=== PATIENT | male | born 1955 | race Asian ===

== ENCOUNTER 2025-01-18 21:11 | Inpatient (IN) | payer MEDICARE, OTHER ==
[~2025-01-18] VITALS: Ht 170.2 cm; Wt 50.9 kg
[2025-01-18] MEDS ORDERED: 0.9% SODIUM CHLORIDE 10 ML SYRINGE IVP PRN (23:15)
[2025-01-18] MEDS: CefTRIAXone 1 GM/DEXTROSE 50 ML IV ONE (23:36)
[2025-01-18] MEDS: LORazepam 2 MG/ML VIAL IVP ONE (23:37)
[2025-01-18 23:38] LABS: CALCIUM, TOTAL 9.0 mg/dL (8.8-10.5); CREATININE 1.19 mg/dL (0.60-1.30); GLOMERULAR FILTR. RATE CALC > 60 mL/min (>60); GLUCOSE,RANDOM 198 mg/dL (70-110); PLATELET COUNT (AUTO) 382 K/uL (150-450); RED BLOOD CELL COUNT(AUTO) 5.40 MIL/uL (4.50-5.90); RED CELL DISTRIBUTION WIDTH 15.0 % (11.5-14.5); SODIUM SERUM 131 mmol/L (136-145); UREA NITROGEN, BLOOD 15 mg/dL (7-18); WHITE BLOOD COUNT (AUTO) 12.7 K/uL (4.5-11.0)
[2025-01-18 23:54] LABS: RBC MORPHOLOGY COMMENT ABNORMAL RBC MORPH
[2025-01-19] MEDS ORDERED: 0.9% SODIUM CHLORIDE 10 ML SYRINGE IVP PRN (00:30)
[2025-01-19 00:55] LABS: LACTIC ACID 3.8 mmol/L (0.4-2.0)
[2025-01-19] MEDS: SODIUM CHLORIDE 0.9% 2,000 ML IV ONE (01:03)
[2025-01-19 01:16] LABS: ASPARTATE AMINOTRANSFERASE 64.0 U/L (15-37); LACTATE DEHYDROGENASE 302.0 U/L (85-227); TOTAL PROTEIN, SERUM 8.0 g/dL (6.4-8.2)
[2025-01-19 04:40] LABS: PLATELET COUNT (AUTO) 355 K/uL (150-450); RED BLOOD CELL COUNT(AUTO) 5.06 MIL/uL (4.50-5.90); RED CELL DISTRIBUTION WIDTH 14.6 % (11.5-14.5); WHITE BLOOD COUNT (AUTO) 13.6 K/uL (4.5-11.0)
[2025-01-19 04:45] LABS: CALCIUM, TOTAL 8.6 mg/dL (8.8-10.5); CREATININE 0.96 mg/dL (0.60-1.30); GLOMERULAR FILTR. RATE CALC > 60 mL/min (>60); GLUCOSE,RANDOM 52 mg/dL (70-110); SODIUM SERUM 135 mmol/L (136-145); UREA NITROGEN, BLOOD 12 mg/dL (7-18)
[2025-01-19 05:06] LABS: RBC MORPHOLOGY COMMENT ABNORMAL RBC MORPH
[2025-01-19] MEDS: DEXTROSE 50%-WATER 25 GM/50 ML SYRINGE IVP PRN (05:20)
[2025-01-19 05:25] VITALS: BP 158/69; PULSE 88; RESP 17; TEMP 98.2; O2SAT 95
[2025-01-19 06:21] LABS: GLUCOMETER DEV NAME(LOC) 5N.1D; GLUCOSE,POINT OF CARE 55 MG/DL (70-110)
[2025-01-19 06:21] LABS: GLUCOMETER DEV NAME(LOC) 5N.1D; GLUCOSE,POINT OF CARE 194 MG/DL (70-110)
[2025-01-19 07:52] VITALS: BP 157/84; PULSE 75; RESP 17; TEMP 99.5; O2SAT 99
[2025-01-19] MEDS: DEXTROSE 5%-LACTATED RINGERS 1,000 ML IV SCH (09:00)
[2025-01-19 11:41] LABS: GLUCOMETER DEV NAME(LOC) 5N.1D; GLUCOSE,POINT OF CARE 131 MG/DL (70-110)
[2025-01-19 11:41] LABS: GLUCOMETER DEV NAME(LOC) 5N.1D; GLUCOSE,POINT OF CARE 88 MG/DL (70-110)
[2025-01-19 12:05] VITALS: BP 155/63; PULSE 93; RESP 16; TEMP 99.1; O2SAT 96
[2025-01-19 13:26] LABS: APPEARANCE,URINE TURBID (CLEAR); GLUCOSE, URINE (UA) 150-200 mg/dL (NEGATIVE); LEUKOCYTE ESTERASE ,URINE LARGE (NEGATIVE); NITRATE,URINE NEGATIVE (NEGATIVE); OCCULT BLOOD,URINE LARGE (NEGATIVE); SPECIFIC GRAVITIY, URINE 1.012 (1.003-1.030)
[2025-01-19] MEDS ORDERED: IOHEXOL 350 MG/ML 100 ML VIAL ONE (13:26)
[2025-01-19 13:43] LABS: SULFOSALICYLIC ACID,URINE 4+ (Negative)
[2025-01-19 13:51] LABS: SQUAMOUS EPITHELIAL CELL,UR Moderate /LPF (None Seen)
[2025-01-19] MEDS: PIPERACILLIN/TAZO 3.375 GM/D5W 50 ML IV SCH (14:26)
[2025-01-19 15:49] VITALS: BP 143/79; PULSE 94; RESP 17; TEMP 99; O2SAT 96
[2025-01-19] MEDS: ACETAMINOPHEN 650 MG RECTAL SUPPOSITORY PR PRN (16:26)
[2025-01-19] MEDS: VANCOMYCIN 1.5 GM/WATER(PEG) 300 ML IV ONE (17:28)
[2025-01-19 17:56] LABS: GLUCOMETER DEV NAME(LOC) 5N.1D; GLUCOSE,POINT OF CARE 153 MG/DL (70-110)
[2025-01-19 19:48] VITALS: BP 141/74; PULSE 78; RESP 18; TEMP 98.8; O2SAT 98
[2025-01-19 23:28] VITALS: BP 163/81; PULSE 83; RESP 18; TEMP 97.7; O2SAT 98
[2025-01-20 06:31] LABS: PLATELET COUNT (AUTO) 390 K/uL (150-450); RED BLOOD CELL COUNT(AUTO) 5.28 MIL/uL (4.50-5.90); RED CELL DISTRIBUTION WIDTH 15.0 % (11.5-14.5); WHITE BLOOD COUNT (AUTO) 14.7 K/uL (4.5-11.0)
[2025-01-20 06:36] VITALS: BP 152/75; PULSE 86; RESP 20; TEMP 98.4; O2SAT 98
[2025-01-20 06:44] LABS: CALCIUM, TOTAL 8.9 mg/dL (8.8-10.5); CREATININE 0.96 mg/dL (0.60-1.30); GLOMERULAR FILTR. RATE CALC > 60 mL/min (>60); GLUCOSE,RANDOM 168 mg/dL (70-110); SODIUM SERUM 138 mmol/L (136-145); UREA NITROGEN, BLOOD 12 mg/dL (7-18)
[2025-01-20 08:31] LABS: RBC MORPHOLOGY COMMENT ABNORMAL RBC MORPH
[2025-01-20 08:33] VITALS: BP 191/84; PULSE 99; RESP 18; TEMP 100.3; O2SAT 96
[2025-01-20] MEDS: VANCOMYCIN 1GM/WATER(PEG/NADA) 200 ML IV SCH (09:02)
[2025-01-20 10:50] VITALS: BP 145/78; PULSE 75; RESP 12; TEMP 98.8; O2SAT 98
[2025-01-20 11:30] LABS: GLUCOMETER DEV NAME(LOC) 5S.1D; GLUCOSE,POINT OF CARE 146 MG/DL (70-110)
[2025-01-20 11:30] LABS: GLUCOMETER DEV NAME(LOC) 5S.1D; GLUCOSE,POINT OF CARE 181 MG/DL (70-110)
[2025-01-20] MEDS: *CLINICAL-MEROPENEM DOSING CLINICAL ONE (11:43)
[2025-01-20] MEDS: INSULIN LISPRO 100 UNITS/ML SQ PRN (11:58)
[2025-01-20] MEDS: MEROPENEM 1 GM in SODIUM CHLORIDE 0.9% 50 ML IV SCH (14:29)
[2025-01-20 15:24] VITALS: BP 185/83; PULSE 89; RESP 17; TEMP 97.7; O2SAT 98
[2025-01-20] MEDS: HEPARIN SODIUM,PORCINE 5,000 UNITS/ML VIAL SQ SCH (17:01)
[2025-01-20 20:00] VITALS: BP 181/73; PULSE 90; RESP 18; TEMP 98.2; O2SAT 98
[2025-01-21] VITALS: BP 174/80; PULSE 97; RESP 18; TEMP 99.1; O2SAT 97
[2025-01-21 03:26] LABS: GLUCOMETER DEV NAME(LOC) 5N.1D; GLUCOSE,POINT OF CARE 114 MG/DL (70-110)
[2025-01-21 04:00] VITALS: BP 175/78; PULSE 89; RESP 18; TEMP 98.6; O2SAT 97
[2025-01-21 06:51] LABS: CALCIUM, TOTAL 8.6 mg/dL (8.8-10.5); CREATININE 1.03 mg/dL (0.60-1.30); GLOMERULAR FILTR. RATE CALC > 60 mL/min (>60); GLUCOSE,RANDOM 183 mg/dL (70-110); SODIUM SERUM 140 mmol/L (136-145); UREA NITROGEN, BLOOD 14 mg/dL (7-18)
[2025-01-21 08:10] LABS: GLUCOMETER DEV NAME(LOC) 5S.2D; GLUCOSE,POINT OF CARE 177 MG/DL (70-110)
[2025-01-21] MEDS: VANCOMYCIN 750 MG/WATER(PEG) 150 ML IV SCH (08:23)
[2025-01-21 08:36] VITALS: BP 173/73; PULSE 87; RESP 17; TEMP 97.9; O2SAT 98
[2025-01-21] MEDS: NITROGLYCERIN 2% (1 GM=INCH) OINTMENT PACKET TP SCH (09:15)
[2025-01-21] MEDS: POTASSIUM CHL 10 MEQ/WATER 50 ML IV PRN (10:22)
[2025-01-21] MEDS: RINGERS SOLUTION,LACTATED 1,000 ML IV SCH (10:23)
[2025-01-21 10:51] VITALS: BP 161/84; PULSE 93; RESP 18; TEMP 97.3; O2SAT 97
[2025-01-21 15:09] VITALS: BP 152/72; PULSE 76; RESP 16; TEMP 98.4; O2SAT 99
[2025-01-21 15:26] LABS: GLUCOMETER DEV NAME(LOC) 5S.2D; GLUCOSE,POINT OF CARE 152 MG/DL (70-110)
[2025-01-21] MEDS: FLUCONAZOLE IV ONE (17:32)
[2025-01-21] MEDS: SODIUM CHLORIDE IV ONE (17:32)
[2025-01-21 18:40] LABS: GLUCOMETER DEV NAME(LOC) 5S.1D; GLUCOSE,POINT OF CARE 190 MG/DL (70-110)
[2025-01-21 20:00] VITALS: BP 193/84; PULSE 81; RESP 18; TEMP 98.6; O2SAT 98
[2025-01-22] VITALS (7 sets, daily range): BP systolic 138–212; BP diastolic 72–103; PULSE 80–93; RESP 16–18; TEMP 97.3–98.2; O2SAT 95–99
[2025-01-22 05:26] LABS: GLUCOMETER DEV NAME(LOC) 5S.1D; GLUCOSE,POINT OF CARE 146 MG/DL (70-110)
[2025-01-22 06:04] LABS: PLATELET COUNT (AUTO) 471 K/uL (150-450); RED BLOOD CELL COUNT(AUTO) 5.32 MIL/uL (4.50-5.90); RED CELL DISTRIBUTION WIDTH 15.1 % (11.5-14.5); WHITE BLOOD COUNT (AUTO) 13.4 K/uL (4.5-11.0)
[2025-01-22 06:13] LABS: ASPARTATE AMINOTRANSFERASE 38 U/L (15-37); CALCIUM, TOTAL 9.1 mg/dL (8.8-10.5); CREATININE 1.02 mg/dL (0.60-1.30); GLOMERULAR FILTR. RATE CALC > 60 mL/min (>60); GLUCOSE,RANDOM 184 mg/dL (70-110); SODIUM SERUM 150 mmol/L (136-145); TOTAL PROTEIN, SERUM 7.7 g/dL (6.4-8.2); UREA NITROGEN, BLOOD 17 mg/dL (7-18)
[2025-01-22 06:37] LABS: RBC MORPHOLOGY COMMENT ABNORMAL RBC MORPH
[2025-01-22 10:00] LABS: GLUCOMETER DEV NAME(LOC) 5S.1D; GLUCOSE,POINT OF CARE 178 MG/DL (70-110)
[2025-01-22 11:55] LABS: GLUCOMETER DEV NAME(LOC) 5S.1D; GLUCOSE,POINT OF CARE 215 MG/DL (70-110)
[2025-01-22] MEDS: DEXTROSE 5%-WATER 1,000 ML IV ONE (13:06)
[2025-01-22 14:41] LABS: GLUCOMETER DEV NAME(LOC) 5S.1D; GLUCOSE,POINT OF CARE 175 MG/DL (70-110)
[2025-01-22 14:41] LABS: GLUCOMETER DEV NAME(LOC) 5S.1D; GLUCOSE,POINT OF CARE 148 MG/DL (70-110)
[2025-01-22] MEDS: POTASSIUM CHL 10 MEQ/WATER 50 ML IV SCH (15:15)
[2025-01-22] MEDS: SODIUM CHLORIDE IV SCH (17:08)
[2025-01-22] MEDS: FLUCONAZOLE IV SCH (17:08)
[2025-01-22 17:35] LABS: GLUCOMETER DEV NAME(LOC) 5S.2D; GLUCOSE,POINT OF CARE 378 MG/DL (70-110)
[2025-01-22] MEDS ORDERED: SODIUM CHLORIDE 0.9% 500 ML IV ONE (18:42)
[2025-01-22] MEDS: LABETALOL HCL 100 MG TABLET PO SCH (20:47)
[2025-01-23 04:40] VITALS: BP 183/79; PULSE 80; RESP 18; TEMP 98.2; O2SAT 97
[2025-01-23 05:59] LABS: PLATELET COUNT (AUTO) 487 K/uL (150-450); RED BLOOD CELL COUNT(AUTO) 5.05 MIL/uL (4.50-5.90); RED CELL DISTRIBUTION WIDTH 14.9 % (11.5-14.5); WHITE BLOOD COUNT (AUTO) 12.5 K/uL (4.5-11.0)
[2025-01-23 06:00] LABS: GLUCOMETER DEV NAME(LOC) 6S.1D; GLUCOSE,POINT OF CARE 296 MG/DL (70-110)
[2025-01-23 06:05] VITALS: BP 169/115; PULSE 81; RESP 16
[2025-01-23 06:10] LABS: CALCIUM, TOTAL 9.3 mg/dL (8.8-10.5); CREATININE 1.19 mg/dL (0.60-1.30); GLOMERULAR FILTR. RATE CALC > 60 mL/min (>60); GLUCOSE,RANDOM 299 mg/dL (70-110); SODIUM SERUM 154 mmol/L (136-145); UREA NITROGEN, BLOOD 20 mg/dL (7-18)
[2025-01-23 09:15] VITALS: BP 172/71; PULSE 72; RESP 20; TEMP 98.4; O2SAT 99
[2025-01-23] MEDS: DEXTROSE 5%-WATER 1,000 ML IV ONE (09:42)
[2025-01-23] MEDS: LABETALOL HCL 100 MG TABLET PO ONE (16:56)
[2025-01-23 17:04] VITALS: BP 140/89; PULSE 79; RESP 20; TEMP 97.9; O2SAT 99
[2025-01-23 18:31] LABS: GLUCOMETER DEV NAME(LOC) 6S.2; GLUCOSE,POINT OF CARE 240 MG/DL (70-110)
[2025-01-23 18:31] LABS: GLUCOMETER DEV NAME(LOC) 6S.2; GLUCOSE,POINT OF CARE 249 MG/DL (70-110)
[2025-01-23] MEDS: LABETALOL HCL 200 MG TABLET PO SCH (20:30)
[2025-01-23 20:45] VITALS: BP 136/73; PULSE 70; RESP 18; TEMP 97.9; O2SAT 97
[2025-01-24 05:00] VITALS: BP 170/77; PULSE 70; RESP 19; TEMP 98.1; O2SAT 97
[2025-01-24 05:50] VITALS: BP 170/87; PULSE 78
[2025-01-24 06:36] LABS: GLUCOMETER DEV NAME(LOC) 6S.1D; GLUCOSE,POINT OF CARE 296 MG/DL (70-110)
[2025-01-24 06:36] LABS: GLUCOMETER DEV NAME(LOC) 6S.1D; GLUCOSE,POINT OF CARE 350 MG/DL (70-110)
[2025-01-24 06:36] LABS: GLUCOMETER DEV NAME(LOC) 6N.2C; GLUCOSE,POINT OF CARE 313 MG/DL (70-110)
[2025-01-24 07:01] VITALS: BP 148/71; PULSE 70
[2025-01-24 07:22] LABS: PLATELET COUNT (AUTO) 483 K/uL (150-450); RED BLOOD CELL COUNT(AUTO) 5.34 MIL/uL (4.50-5.90); RED CELL DISTRIBUTION WIDTH 15.1 % (11.5-14.5); WHITE BLOOD COUNT (AUTO) 11.8 K/uL (4.5-11.0)
[2025-01-24 07:38] LABS: ASPARTATE AMINOTRANSFERASE 42.0 U/L (15-37); CALCIUM, TOTAL 9.9 mg/dL (8.8-10.5); CREATININE 1.46 mg/dL (0.60-1.30); GLOMERULAR FILTR. RATE CALC 48.0 mL/min (>60); GLUCOSE,RANDOM 317.0 mg/dL (70-110); SODIUM SERUM 154.0 mmol/L (136-145); TOTAL PROTEIN, SERUM 7.9 g/dL (6.4-8.2); UREA NITROGEN, BLOOD 21.0 mg/dL (7-18)
[2025-01-24 08:13] LABS: RBC MORPHOLOGY COMMENT ABNORMAL RBC MORPH
[2025-01-24 09:33] VITALS: BP 144/77; PULSE 69; RESP 18; TEMP 98; O2SAT 97
[2025-01-24] MEDS: DEXTROSE 5%-WATER 1,000 ML IV SCH (15:44)
[2025-01-24 16:12] LABS: CANDIDA AURIS PCR,SURVEILLANCE Not Detected C(t) (Not Detectd)
[2025-01-24 16:20] VITALS: BP 158/76; PULSE 71; RESP 18; TEMP 97.6; O2SAT 96
[2025-01-24 20:01] VITALS: BP 146/74; PULSE 75; RESP 18; TEMP 98.8; O2SAT 96
[2025-01-24 20:16] LABS: GLUCOMETER DEV NAME(LOC) 6N.2C; GLUCOSE,POINT OF CARE 235 MG/DL (70-110)
[2025-01-24] MEDS: POTASSIUM CHLORIDE 20 MEQ ER TABLET PO PRN (22:57)
[2025-01-25 04:00] VITALS: BP 147/73; PULSE 74; RESP 18; TEMP 98.4; O2SAT 96
[2025-01-25 06:10] LABS: GLUCOMETER DEV NAME(LOC) 6S.2; GLUCOSE,POINT OF CARE 245 MG/DL (70-110)
[2025-01-25 06:11] LABS: GLUCOMETER DEV NAME(LOC) 6N.2C; GLUCOSE,POINT OF CARE 294 MG/DL (70-110)
[2025-01-25 07:22] LABS: PLATELET COUNT (AUTO) 490 K/uL (150-450); RED BLOOD CELL COUNT(AUTO) 5.24 MIL/uL (4.50-5.90); RED CELL DISTRIBUTION WIDTH 15.1 % (11.5-14.5); WHITE BLOOD COUNT (AUTO) 11.9 K/uL (4.5-11.0)
[2025-01-25 07:32] LABS: CALCIUM, TOTAL 9.1 mg/dL (8.8-10.5); CREATININE 1.44 mg/dL (0.60-1.30); GLOMERULAR FILTR. RATE CALC 49.0 mL/min (>60); GLUCOSE,RANDOM 350.0 mg/dL (70-110); SODIUM SERUM 153.0 mmol/L (136-145); UREA NITROGEN, BLOOD 21.0 mg/dL (7-18)
[2025-01-25 08:03] LABS: RBC MORPHOLOGY COMMENT ABNORMAL RBC MORPH
[2025-01-25 08:05] VITALS: BP 154/90; PULSE 72; RESP 18; TEMP 98.1; O2SAT 98
[2025-01-25 17:15] LABS: GLUCOMETER DEV NAME(LOC) 6S.1D; GLUCOSE,POINT OF CARE 234 MG/DL (70-110)
[2025-01-25 17:15] LABS: GLUCOMETER DEV NAME(LOC) 6S.1D; GLUCOSE,POINT OF CARE 329 MG/DL (70-110)
[2025-01-25 17:37] VITALS: BP 140/67; PULSE 70; RESP 18; TEMP 97.7; O2SAT 98
[2025-01-25 20:29] VITALS: BP 140/66; PULSE 72; RESP 19; TEMP 98.1; O2SAT 98
[2025-01-26 05:23] VITALS: BP 156/79; PULSE 75; RESP 19; TEMP 98.1; O2SAT 99
[2025-01-26 06:28] LABS: RED BLOOD CELL COUNT(AUTO) 5.83 MIL/uL (4.50-5.90); RED CELL DISTRIBUTION WIDTH 15.3 % (11.5-14.5); WHITE BLOOD COUNT (AUTO) 14.0 K/uL (4.5-11.0)
[2025-01-26 06:40] LABS: PLATELET COUNT (AUTO) 449 K/uL (150-450)
[2025-01-26 06:41] LABS: RBC MORPHOLOGY COMMENT ABNORMAL RBC MORPH
[2025-01-26 08:26] LABS: ASPARTATE AMINOTRANSFERASE 32.0 U/L (15-37); CALCIUM, TOTAL 10.2 mg/dL (8.8-10.5); CREATININE 1.67 mg/dL (0.60-1.30); GLOMERULAR FILTR. RATE CALC 41.0 mL/min (>60); GLUCOSE,RANDOM 315.0 mg/dL (70-110); SODIUM SERUM 156.0 mmol/L (136-145); TOTAL PROTEIN, SERUM 8.1 g/dL (6.4-8.2); UREA NITROGEN, BLOOD 28.0 mg/dL (7-18)
[2025-01-26 08:36] VITALS: BP 150/75; PULSE 72; RESP 18; TEMP 98.6; O2SAT 97
[2025-01-26 08:46] LABS: GLUCOMETER DEV NAME(LOC) 6S.1D; GLUCOSE,POINT OF CARE 392 MG/DL (70-110)
[2025-01-26 08:51] LABS: GLUCOMETER DEV NAME(LOC) 6S.2; GLUCOSE,POINT OF CARE 337 MG/DL (70-110)
[2025-01-26 08:51] LABS: GLUCOMETER DEV NAME(LOC) 6S.2; GLUCOSE,POINT OF CARE 299 MG/DL (70-110)
[2025-01-26 12:00] VITALS: BP 120/54; PULSE 75; RESP 18; TEMP 98; O2SAT 97
[2025-01-26 12:51] LABS: GLUCOMETER DEV NAME(LOC) 6N.2C; GLUCOSE,POINT OF CARE 395 MG/DL (70-110)
[2025-01-26 16:51] VITALS: BP 139/69; PULSE 73; RESP 18; TEMP 98.4; O2SAT 95
[2025-01-26 20:40] VITALS: BP 135/67; PULSE 78; RESP 18; TEMP 98.4; O2SAT 97
[2025-01-26] MEDS: INSULIN GLARGINE,HUM.REC.ANLOG 100 UNITS/ML SQ SCH (21:43)
[2025-01-26] MEDS: INSULIN LISPRO 100 UNITS/ML SQ ONE (21:46)
[2025-01-27 05:30] VITALS: BP 135/69; PULSE 74; RESP 18; TEMP 97.3; O2SAT 97
[2025-01-27 07:01] LABS: PLATELET COUNT (AUTO) 403 K/uL (150-450); RED BLOOD CELL COUNT(AUTO) 5.04 MIL/uL (4.50-5.90); RED CELL DISTRIBUTION WIDTH 15.2 % (11.5-14.5); WHITE BLOOD COUNT (AUTO) 10.5 K/uL (4.5-11.0)
[2025-01-27 07:19] LABS: CALCIUM, TOTAL 10.0 mg/dL (8.8-10.5); CREATININE 1.83 mg/dL (0.60-1.30); GLOMERULAR FILTR. RATE CALC 37.0 mL/min (>60); GLUCOSE,RANDOM 367.0 mg/dL (70-110); SODIUM SERUM 156.0 mmol/L (136-145); UREA NITROGEN, BLOOD 34.0 mg/dL (7-18)
[2025-01-27 07:45] LABS: GLUCOMETER DEV NAME(LOC) 6S.2; GLUCOSE,POINT OF CARE 349 MG/DL (70-110)
[2025-01-27 07:46] LABS: GLUCOMETER DEV NAME(LOC) 6S.2; GLUCOSE,POINT OF CARE 348 MG/DL (70-110)
[2025-01-27 07:46] LABS: GLUCOMETER DEV NAME(LOC) 6S.2; GLUCOSE,POINT OF CARE 451 MG/DL (70-110)
[2025-01-27 09:09] VITALS: BP 132/58; PULSE 71; RESP 18; TEMP 99.7; O2SAT 100
[2025-01-27 11:00] VITALS: TEMP 98.2
[2025-01-27 12:55] LABS: GLUCOMETER DEV NAME(LOC) 6N.2C; GLUCOSE,POINT OF CARE 354 MG/DL (70-110)
[2025-01-27] MEDS: SODIUM CHLORIDE 0.45% 1,000 ML IV SCH (14:51)
[2025-01-27 15:47] VITALS: BP 118/59; PULSE 74; RESP 18; TEMP 99.3; O2SAT 100
[2025-01-27 20:14] VITALS: BP 137/56; PULSE 80; RESP 18; TEMP 98.8; O2SAT 98
[2025-01-27 20:26] LABS: GLUCOMETER DEV NAME(LOC) 6N.2C; GLUCOSE,POINT OF CARE 356 MG/DL (70-110)
[2025-01-27] MEDS: TAMSULOSIN HCL 0.4 MG CAPSULE PO SCH (20:30)
[2025-01-27] MEDS: INSULIN GLARGINE,HUM.REC.ANLOG 100 UNITS/ML SQ SCH (20:35)
[2025-01-27 21:26] LABS: GLUCOMETER DEV NAME(LOC) 6N.2C; GLUCOSE,POINT OF CARE 294 MG/DL (70-110)
[2025-01-28 04:11] VITALS: BP 157/74; PULSE 74; RESP 18; TEMP 97.7; O2SAT 97
[2025-01-28 06:25] LABS: GLUCOMETER DEV NAME(LOC) 6S.1D; GLUCOSE,POINT OF CARE 363 MG/DL (70-110)
[2025-01-28 06:48] LABS: CALCIUM, TOTAL 9.5 mg/dL (8.8-10.5); CREATININE 1.67 mg/dL (0.60-1.30); GLOMERULAR FILTR. RATE CALC 41.0 mL/min (>60); GLUCOSE,RANDOM 357.0 mg/dL (70-110); SODIUM SERUM 156.0 mmol/L (136-145); UREA NITROGEN, BLOOD 42.0 mg/dL (7-18)
[2025-01-28 07:13] LABS: PHOSPHORUS 4.1 mg/dL (2.5-4.9)
[2025-01-28 07:52] VITALS: BP 128/70; PULSE 69; RESP 18; TEMP 98.2; O2SAT 99
[2025-01-28 13:31] LABS: GLUCOMETER DEV NAME(LOC) 6S.1D; GLUCOSE,POINT OF CARE 466 MG/DL (70-110)
[2025-01-28 17:40] LABS: GLUCOMETER DEV NAME(LOC) 6N.2C; GLUCOSE,POINT OF CARE 345 MG/DL (70-110)
[2025-01-28 20:11] VITALS: BP 113/60; PULSE 77; RESP 18; O2SAT 97
[2025-01-28] MEDS: INSULIN GLARGINE,HUM.REC.ANLOG 100 UNITS/ML SQ SCH (21:19)
[2025-01-28 21:46] LABS: GLUCOMETER DEV NAME(LOC) 6N.2C; GLUCOSE,POINT OF CARE 179 MG/DL (70-110)
[2025-01-28 23:11] VITALS: BP 126/62; RESP 18; O2SAT 95
[2025-01-29 04:13] VITALS: BP 126/65; PULSE 72; RESP 18; TEMP 98.3; O2SAT 97
[2025-01-29 06:25] LABS: GLUCOMETER DEV NAME(LOC) 6N.2C; GLUCOSE,POINT OF CARE 293 MG/DL (70-110)
[2025-01-29 07:29] LABS: PLATELET COUNT (AUTO) 291 K/uL (150-450); RED BLOOD CELL COUNT(AUTO) 4.63 MIL/uL (4.50-5.90); RED CELL DISTRIBUTION WIDTH 14.8 % (11.5-14.5); WHITE BLOOD COUNT (AUTO) 11.5 K/uL (4.5-11.0)
[2025-01-29 07:32] LABS: PHOSPHORUS 3.7 mg/dL (2.5-4.9)
[2025-01-29 07:33] LABS: RBC MORPHOLOGY COMMENT ABNORMAL RBC MORPH
[2025-01-29 07:34] LABS: ASPARTATE AMINOTRANSFERASE 32.0 U/L (15-37); CALCIUM, TOTAL 8.5 mg/dL (8.8-10.5); CREATININE 1.93 mg/dL (0.60-1.30); GLOMERULAR FILTR. RATE CALC 35.0 mL/min (>60); GLUCOSE,RANDOM 289.0 mg/dL (70-110); SODIUM SERUM 156.0 mmol/L (136-145); TOTAL PROTEIN, SERUM 7.2 g/dL (6.4-8.2); UREA NITROGEN, BLOOD 42.0 mg/dL (7-18)
[2025-01-29 08:00] VITALS: BP 119/73; PULSE 69; RESP 18; TEMP 97.9; O2SAT 98
[2025-01-29] MEDS: TAMSULOSIN HCL 0.4 MG CAPSULE PO SCH (09:07)
[2025-01-29] MEDS: DEXTROSE 5%-WATER 1,000 ML IV SCH (09:13)
[2025-01-29 15:00] VITALS: BP 118/73; PULSE 66; RESP 19; TEMP 97.7; O2SAT 99
[2025-01-29 20:06] VITALS: BP 139/65; PULSE 75; RESP 19; TEMP 98.4; O2SAT 96
[2025-01-29 21:16] LABS: GLUCOMETER DEV NAME(LOC) 6S.1D; GLUCOSE,POINT OF CARE 348 MG/DL (70-110)
[2025-01-29] MEDS: INSULIN GLARGINE,HUM.REC.ANLOG 100 UNITS/ML SQ SCH (21:47)
[2025-01-29 23:34] VITALS: BP 121/58; PULSE 72
[2025-01-30 00:51] LABS: GLUCOMETER DEV NAME(LOC) 6S.2; GLUCOSE,POINT OF CARE 329 MG/DL (70-110)
[2025-01-30 04:25] VITALS: BP 117/66; PULSE 78; RESP 18; TEMP 97.7; O2SAT 97
[2025-01-30 05:30] LABS: GLUCOMETER DEV NAME(LOC) 6N.2C; GLUCOSE,POINT OF CARE 294 MG/DL (70-110)
[2025-01-30 05:35] LABS: GLUCOMETER DEV NAME(LOC) 6N.2C; GLUCOSE,POINT OF CARE 379 MG/DL (70-110)
[2025-01-30 07:50] LABS: PHOSPHORUS 3.4 mg/dL (2.5-4.9)
[2025-01-30 07:59] LABS: CALCIUM, TOTAL 9.1 mg/dL (8.8-10.5); CREATININE 1.71 mg/dL (0.60-1.30); GLOMERULAR FILTR. RATE CALC 40.0 mL/min (>60); GLUCOSE,RANDOM 346.0 mg/dL (70-110); UREA NITROGEN, BLOOD 35.0 mg/dL (7-18)
[2025-01-30 08:05] VITALS: BP 124/59; PULSE 69; RESP 20; TEMP 99; O2SAT 99
[2025-01-30 08:05] LABS: SODIUM SERUM 152.0 mmol/L (136-145)
[2025-01-30] MEDS: POTASSIUM CHLORIDE 10 MEQ ER TABLET PO ONE (08:15)
[2025-01-30] MEDS ORDERED: SODIUM CHLORIDE 0.9% 1,000 ML ONE (08:58)
[2025-01-30] MEDS: SODIUM CHLORIDE 0.9% 1,000 ML IV ONE (10:33)
[2025-01-30 11:01] LABS: GLUCOMETER DEV NAME(LOC) 6S.2; GLUCOSE,POINT OF CARE 317 MG/DL (70-110)
[2025-01-30] MEDS ORDERED: PROPOFOL 1% 20 ML VIAL IVP ONE (12:00)
[2025-01-30 15:20] VITALS: BP 154/77; PULSE 78; RESP 20; TEMP 99.5; O2SAT 98
[2025-01-30 19:42] VITALS: BP 124/81; PULSE 88; RESP 18; TEMP 99.1; O2SAT 96
[2025-01-30] MEDS: INSULIN GLARGINE,HUM.REC.ANLOG 100 UNITS/ML SQ SCH (20:42)
[2025-01-31 05:46] LABS: GLUCOMETER DEV NAME(LOC) 6S.1D; GLUCOSE,POINT OF CARE 245 MG/DL (70-110)
[2025-01-31 05:50] LABS: GLUCOMETER DEV NAME(LOC) 6S.2; GLUCOSE,POINT OF CARE 321 MG/DL (70-110)
[2025-01-31 05:51] VITALS: BP 121/57; PULSE 80; RESP 19; TEMP 99.7; O2SAT 95
[2025-01-31 07:26] LABS: PHOSPHORUS 2.5 mg/dL (2.5-4.9)
[2025-01-31 07:36] LABS: CALCIUM, TOTAL 8.0 mg/dL (8.8-10.5); CREATININE 1.77 mg/dL (0.60-1.30); GLOMERULAR FILTR. RATE CALC 38.0 mL/min (>60); GLUCOSE,RANDOM 274.0 mg/dL (70-110); SODIUM SERUM 148.0 mmol/L (136-145); UREA NITROGEN, BLOOD 32.0 mg/dL (7-18)
[2025-01-31 08:38] VITALS: BP 109/65; PULSE 75; RESP 18; TEMP 98.2; O2SAT 97
[2025-01-31] MEDS: POTASSIUM CHLORIDE 20 MEQ ER TABLET PO ONE (10:36)
[2025-01-31 11:35] LABS: GLUCOMETER DEV NAME(LOC) 6N.2C; GLUCOSE,POINT OF CARE 303 MG/DL (70-110)
[2025-01-31 11:40] LABS: GLUCOMETER DEV NAME(LOC) 6S.1D; GLUCOSE,POINT OF CARE 210 MG/DL (70-110)
[2025-01-31 16:16] VITALS: BP 120/63; PULSE 78; RESP 18; TEMP 98; O2SAT 96
[2025-01-31] MEDS: DEXTROSE 5%-WATER 1,000 ML IV ONE (17:12)
[2025-01-31] MEDS: POTASSIUM CHLORIDE 10% 40 MEQ/30 ML LIQUID UDCUP GT ONE (17:12)
[2025-01-31 20:44] VITALS: BP 126/64; PULSE 89; RESP 19; TEMP 98.1; O2SAT 97
[2025-01-31 21:16] LABS: GLUCOMETER DEV NAME(LOC) 6S.2; GLUCOSE,POINT OF CARE 233 MG/DL (70-110)
[2025-01-31] MEDS ORDERED: INSULIN LISPRO 100 UNITS/ML SQ ONE (22:30)
[2025-02-01 04:29] VITALS: BP 110/60; PULSE 84; RESP 19; TEMP 97.9; O2SAT 94
[2025-02-01 05:46] LABS: GLUCOMETER DEV NAME(LOC) 6S.1D; GLUCOSE,POINT OF CARE 266 MG/DL (70-110)
[2025-02-01 05:46] LABS: GLUCOMETER DEV NAME(LOC) 6S.1D; GLUCOSE,POINT OF CARE 450 MG/DL (70-110)
[2025-02-01] MEDS: INSULIN LISPRO 100 UNITS/ML SQ PRN (05:55)
[2025-02-01 06:52] LABS: PHOSPHORUS 2.9 mg/dL (2.5-4.9)
[2025-02-01 07:00] LABS: CALCIUM, TOTAL 8.3 mg/dL (8.8-10.5); CREATININE 1.6 mg/dL (0.60-1.30); GLOMERULAR FILTR. RATE CALC 43.0 mL/min (>60); GLUCOSE,RANDOM 152.0 mg/dL (70-110); SODIUM SERUM 145.0 mmol/L (136-145); UREA NITROGEN, BLOOD 38.0 mg/dL (7-18)
[2025-02-01 07:40] LABS: GLUCOMETER DEV NAME(LOC) 6N.2C; GLUCOSE,POINT OF CARE 158 MG/DL (70-110)
[2025-02-01] MEDS: INSULIN GLARGINE,HUM.REC.ANLOG 100 UNITS/ML SQ SCH (10:06)
[2025-02-01] MEDS: DEXTROSE 50%-WATER 25 GM/50 ML SYRINGE IVP PRN (12:34)
[2025-02-01 15:27] VITALS: BP 111/56; PULSE 75; RESP 18; TEMP 99; O2SAT 95
[2025-02-01] MEDS ORDERED: SODIUM CHLORIDE 0.9% 250 ML IV ONE (16:21)
[2025-02-01 20:45] VITALS: BP 110/61; PULSE 77; RESP 18; TEMP 98.4; O2SAT 95
[2025-02-01 23:51] LABS: GLUCOMETER DEV NAME(LOC) 6N.2C; GLUCOSE,POINT OF CARE 39 MG/DL (70-110)
[2025-02-01 23:51] LABS: GLUCOMETER DEV NAME(LOC) 6N.2C; GLUCOSE,POINT OF CARE 184 MG/DL (70-110)
[2025-02-01 23:51] LABS: GLUCOMETER DEV NAME(LOC) 6N.2C; GLUCOSE,POINT OF CARE 47 MG/DL (70-110)
[2025-02-01 23:51] LABS: GLUCOMETER DEV NAME(LOC) 6N.2C; GLUCOSE,POINT OF CARE 55 MG/DL (70-110)
[2025-02-01 23:51] LABS: GLUCOMETER DEV NAME(LOC) 6N.2C; GLUCOSE,POINT OF CARE 172 MG/DL (70-110)
[2025-02-02 03:16] LABS: GLUCOMETER DEV NAME(LOC) 6S.2; GLUCOSE,POINT OF CARE 111 MG/DL (70-110)
[2025-02-02 03:45] VITALS: BP 125/60; PULSE 80; RESP 18; TEMP 98.6; O2SAT 95
[2025-02-02 06:43] LABS: ASPARTATE AMINOTRANSFERASE 58.0 U/L (15-37); CALCIUM, TOTAL 9.5 mg/dL (8.8-10.5); CREATININE 1.68 mg/dL (0.60-1.30); GLOMERULAR FILTR. RATE CALC 41.0 mL/min (>60); GLUCOSE,RANDOM 127.0 mg/dL (70-110); PHOSPHORUS 4.6 mg/dL (2.5-4.9); SODIUM SERUM 151.0 mmol/L (136-145); TOTAL PROTEIN, SERUM 7.3 g/dL (6.4-8.2); UREA NITROGEN, BLOOD 33.0 mg/dL (7-18)
[2025-02-02 06:51] LABS: PLATELET COUNT (AUTO) 196 K/uL (150-450); RED BLOOD CELL COUNT(AUTO) 4.17 MIL/uL (4.50-5.90); RED CELL DISTRIBUTION WIDTH 14.9 % (11.5-14.5); WHITE BLOOD COUNT (AUTO) 13.6 K/uL (4.5-11.0)
[2025-02-02 06:59] LABS: RBC MORPHOLOGY COMMENT ABNORMAL RBC MORPH
[2025-02-02 08:12] VITALS: BP 108/60; PULSE 84; RESP 18; TEMP 98.3; O2SAT 98
[2025-02-02 08:13] VITALS: BP 157/96; PULSE 105; RESP 18; TEMP 97.3; O2SAT 95
[2025-02-02] MEDS: INSULIN GLARGINE,HUM.REC.ANLOG 100 UNITS/ML SQ SCH (09:39)
[2025-02-02 10:46] LABS: GLUCOMETER DEV NAME(LOC) 6S.1D; GLUCOSE,POINT OF CARE 110 MG/DL (70-110)
[2025-02-02] MEDS: DEXTROSE 5%-WATER 1,000 ML IV ONE (11:05)
[2025-02-02 12:40] LABS: GLUCOMETER DEV NAME(LOC) 6S.1D; GLUCOSE,POINT OF CARE 354 MG/DL (70-110)
[2025-02-02 15:58] LABS: CALCIUM, TOTAL 9.2 mg/dL (8.8-10.5); CREATININE 1.48 mg/dL (0.60-1.30); GLOMERULAR FILTR. RATE CALC 47.0 mL/min (>60); GLUCOSE,RANDOM 139.0 mg/dL (70-110); SODIUM SERUM 145.0 mmol/L (136-145); UREA NITROGEN, BLOOD 30.0 mg/dL (7-18)
[2025-02-02 16:47] VITALS: BP 124/62; PULSE 101; RESP 18; TEMP 97.3; O2SAT 95
[2025-02-02 19:01] LABS: GLUCOMETER DEV NAME(LOC) 6N.2C; GLUCOSE,POINT OF CARE 136 MG/DL (70-110)
[2025-02-02 20:06] LABS: GLUCOMETER DEV NAME(LOC) 6S.2; GLUCOSE,POINT OF CARE 88 MG/DL (70-110)
[2025-02-02 20:54] VITALS: BP 108/62; PULSE 80; RESP 18; TEMP 97.9; O2SAT 95
[2025-02-03 03:31] LABS: GLUCOMETER DEV NAME(LOC) 6N.2C; GLUCOSE,POINT OF CARE 179 MG/DL (70-110)
[2025-02-03 04:26] VITALS: BP 115/65; PULSE 77; RESP 18; TEMP 98.1; O2SAT 95
[2025-02-03 07:20] LABS: PLATELET COUNT (AUTO) 228 K/uL (150-450); RED BLOOD CELL COUNT(AUTO) 4.39 MIL/uL (4.50-5.90); RED CELL DISTRIBUTION WIDTH 14.4 % (11.5-14.5); WHITE BLOOD COUNT (AUTO) 9.4 K/uL (4.5-11.0)
[2025-02-03 07:35] LABS: GLUCOMETER DEV NAME(LOC) 6S.2; GLUCOSE,POINT OF CARE 156 MG/DL (70-110)
[2025-02-03 07:39] LABS: ASPARTATE AMINOTRANSFERASE 71.0 U/L (15-37); CALCIUM, TOTAL 9.1 mg/dL (8.8-10.5); CREATININE 1.55 mg/dL (0.60-1.30); GLOMERULAR FILTR. RATE CALC 45.0 mL/min (>60); GLUCOSE,RANDOM 159.0 mg/dL (70-110); SODIUM SERUM 149.0 mmol/L (136-145); TOTAL PROTEIN, SERUM 7.6 g/dL (6.4-8.2); UREA NITROGEN, BLOOD 32.0 mg/dL (7-18)
[2025-02-03 08:37] VITALS: BP 118/66; PULSE 82; RESP 18; TEMP 98.2; O2SAT 96
[2025-02-03 08:59] LABS: RBC MORPHOLOGY COMMENT ABNORMAL RBC MORPH
[2025-02-03] MEDS: CLOPIDOGREL BISULFATE 75 MG TABLET GT SCH (09:21)
[2025-02-03] MEDS: ASPIRIN 81 MG CHEWABLE TABLET GT SCH (09:21)
[2025-02-03] MEDS: ATORVASTATIN CALCIUM 40 MG TABLET GT SCH (09:21)
[2025-02-03] MEDS ORDERED: SODIUM CHLORIDE 0.9% 500 ML IV ONE (12:53)
[2025-02-03] MEDS: ACETAMINOPHEN 650 MG/20.3 ML SOLUTION UDCUP GT PRN (16:03)
[2025-02-03 16:08] VITALS: BP 124/62; PULSE 84; RESP 18; TEMP 97.9; O2SAT 96
[2025-02-03 20:13] VITALS: BP 114/62; PULSE 85; RESP 18; TEMP 99.7; O2SAT 92
[2025-02-03 22:30] VITALS: TEMP 99
[2025-02-04 04:03] VITALS: BP 107/57; PULSE 81; RESP 18; TEMP 100; O2SAT 93
[2025-02-04 05:55] LABS: GLUCOMETER DEV NAME(LOC) 6S.1D; GLUCOSE,POINT OF CARE 148 MG/DL (70-110)
[2025-02-04 05:55] LABS: GLUCOMETER DEV NAME(LOC) 6S.1D; GLUCOSE,POINT OF CARE 100 MG/DL (70-110)
[2025-02-04 05:55] LABS: GLUCOMETER DEV NAME(LOC) 6S.1D; GLUCOSE,POINT OF CARE 155 MG/DL (70-110)
[2025-02-04 06:00] VITALS: TEMP 97.9
[2025-02-04 06:21] LABS: GLUCOMETER DEV NAME(LOC) 6S.2; GLUCOSE,POINT OF CARE 203 MG/DL (70-110)
[2025-02-04 07:30] LABS: GLUCOMETER DEV NAME(LOC) 6N.2C; GLUCOSE,POINT OF CARE 161 MG/DL (70-110)
[2025-02-04 08:51] VITALS: BP 100/66; PULSE 74; RESP 20; TEMP 99.1; O2SAT 93
[2025-02-04 09:46] LABS: GLUCOMETER DEV NAME(LOC) 6S.2; GLUCOSE,POINT OF CARE 169 MG/DL (70-110)
[2025-02-04 10:48] LABS: CALCIUM, TOTAL 9.4 mg/dL (8.8-10.5); CREATININE 1.76 mg/dL (0.60-1.30); GLOMERULAR FILTR. RATE CALC 39.0 mL/min (>60); GLUCOSE,RANDOM 210.0 mg/dL (70-110); SODIUM SERUM 145.0 mmol/L (136-145); UREA NITROGEN, BLOOD 36.0 mg/dL (7-18)
[2025-02-04] MEDS ORDERED: DEXTROSE 5%-WATER 1,000 ML IV SCH (12:00)
[2025-02-04] MEDS: WATER FOR INJECTION,STERILE 500 ML in DEXTROSE 5%-WATER 500 ML IV SCH (14:20)
[2025-02-04 17:06] VITALS: BP 116/60; PULSE 84; RESP 20; TEMP 99.7; O2SAT 93
[2025-02-04 17:51] LABS: GLUCOMETER DEV NAME(LOC) 6S.2; GLUCOSE,POINT OF CARE 219 MG/DL (70-110)
[2025-02-04 20:30] VITALS: BP 110/55; PULSE 78; RESP 20; TEMP 98.2; O2SAT 94
[2025-02-04 21:00] VITALS: BP 119/56; PULSE 74; RESP 25; TEMP 98.3; O2SAT 95
[2025-02-04] MEDS: PIPERACILLIN SODIUM/TAZOBACTAM 2.25 GM in DEXTROSE 5%-WATER 50 ML IV SCH (22:53)
[2025-02-04] MEDS ORDERED: SODIUM CHLORIDE 0.9% 250 ML IV ONE (22:56)
[2025-02-05] VITALS (7 sets, daily range): BP systolic 92–135; BP diastolic 52–88; PULSE 60–83; RESP 18–22; TEMP 98.4–100.8; O2SAT 94–98
[2025-02-05 05:31] LABS: PLATELET COUNT (AUTO) 254 K/uL (150-450); RED BLOOD CELL COUNT(AUTO) 3.76 MIL/uL (4.50-5.90); RED CELL DISTRIBUTION WIDTH 14.3 % (11.5-14.5); WHITE BLOOD COUNT (AUTO) 13.4 K/uL (4.5-11.0)
[2025-02-05 05:36] LABS: ASPARTATE AMINOTRANSFERASE 54.0 U/L (15-37); CALCIUM, TOTAL 9.4 mg/dL (8.8-10.5); CREATININE 1.5 mg/dL (0.60-1.30); GLOMERULAR FILTR. RATE CALC 47.0 mL/min (>60); GLUCOSE,RANDOM 152.0 mg/dL (70-110); SODIUM SERUM 147.0 mmol/L (136-145); TOTAL PROTEIN, SERUM 7.3 g/dL (6.4-8.2); UREA NITROGEN, BLOOD 31.0 mg/dL (7-18)
[2025-02-05 06:35] LABS: GLUCOMETER DEV NAME(LOC) ICUN.6; GLUCOSE,POINT OF CARE 206 MG/DL (70-110)
[2025-02-05 06:41] LABS: GLUCOMETER DEV NAME(LOC) 6S.2; GLUCOSE,POINT OF CARE 210 MG/DL (70-110)
[2025-02-05] MEDS: VANCOMYCIN 1.25 GM/WATER(PEG) 250 ML IV ONE (10:05)
[2025-02-05 12:05] LABS: GLUCOMETER DEV NAME(LOC) ICUN.6; GLUCOSE,POINT OF CARE 148 MG/DL (70-110)
[2025-02-05 12:15] LABS: GLUCOMETER DEV NAME(LOC) ICUN.6; GLUCOSE,POINT OF CARE 184 MG/DL (70-110)
[2025-02-05 12:21] LABS: GLUCOMETER DEV NAME(LOC) 6S.1D; GLUCOSE,POINT OF CARE 222 MG/DL (70-110)
[2025-02-06 02:36] LABS: GLUCOMETER DEV NAME(LOC) 6N.2C; GLUCOSE,POINT OF CARE 117 MG/DL (70-110)
[2025-02-06 03:54] VITALS: BP 115/59; PULSE 73; RESP 20; TEMP 98.4; O2SAT 96
[2025-02-06 06:18] LABS: PLATELET COUNT (AUTO) 313 K/uL (150-450); RED BLOOD CELL COUNT(AUTO) 3.93 MIL/uL (4.50-5.90); RED CELL DISTRIBUTION WIDTH 14.2 % (11.5-14.5); WHITE BLOOD COUNT (AUTO) 11.3 K/uL (4.5-11.0)
[2025-02-06 06:43] LABS: ASPARTATE AMINOTRANSFERASE 130.0 U/L (15-37); CALCIUM, TOTAL 8.9 mg/dL (8.8-10.5); CREATININE 1.87 mg/dL (0.60-1.30); GLOMERULAR FILTR. RATE CALC 36.0 mL/min (>60); SODIUM SERUM 144.0 mmol/L (136-145); TOTAL PROTEIN, SERUM 7.5 g/dL (6.4-8.2); UREA NITROGEN, BLOOD 28.0 mg/dL (7-18)
[2025-02-06 07:12] LABS: GLUCOSE,RANDOM 36.0 mg/dL (70-110)
[2025-02-06 07:20] LABS: RBC MORPHOLOGY COMMENT ABNORMAL RBC MORPH
[2025-02-06 07:32] VITALS: BP 123/64; PULSE 84; RESP 20; TEMP 100.2; O2SAT 97
[2025-02-06] MEDS: VANCOMYCIN 1GM/WATER(PEG/NADA) 200 ML IV SCH (08:22)
[2025-02-06 08:32] VITALS: TEMP 99.7
[2025-02-06 10:40] LABS: GLUCOMETER DEV NAME(LOC) 6S.1D; GLUCOSE,POINT OF CARE 37 MG/DL (70-110)
[2025-02-06 10:40] LABS: GLUCOMETER DEV NAME(LOC) 6S.1D; GLUCOSE,POINT OF CARE 193 MG/DL (70-110)
[2025-02-06 10:40] LABS: GLUCOMETER DEV NAME(LOC) 6S.1D; GLUCOSE,POINT OF CARE 190 MG/DL (70-110)
[2025-02-06 11:56] LABS: GLUCOMETER DEV NAME(LOC) 6S.1D; GLUCOSE,POINT OF CARE 146 MG/DL (70-110)
[2025-02-06 12:26] LABS: GLUCOMETER DEV NAME(LOC) 6S.2; GLUCOSE,POINT OF CARE 68 MG/DL (70-110)
[2025-02-06 16:41] LABS: GLUCOMETER DEV NAME(LOC) 6S.1D; GLUCOSE,POINT OF CARE 65 MG/DL (70-110)
[2025-02-06 18:00] VITALS: BP 97/59; PULSE 75; RESP 19; TEMP 98.9; O2SAT 97
[2025-02-06] MEDS ORDERED: DEXTROSE 50%-WATER 25 GM in WATER FOR INJECTION,STERILE 950 ML IV SCH (19:00)
[2025-02-06 20:01] VITALS: BP 113/61; PULSE 67; RESP 19; TEMP 100.8; O2SAT 99
[2025-02-06] MEDS: DEXTROSE 10%-WATER 1,000 ML IV SCH (21:17)
[2025-02-06] MEDS: INSULIN GLARGINE,HUM.REC.ANLOG 100 UNITS/ML SQ SCH (21:27)
[2025-02-06 23:26] LABS: GLUCOMETER DEV NAME(LOC) 5S.2D; GLUCOSE,POINT OF CARE 185 MG/DL (70-110)
[2025-02-06 23:26] LABS: GLUCOMETER DEV NAME(LOC) 5S.2D; GLUCOSE,POINT OF CARE 193 MG/DL (70-110)
[2025-02-07 01:03] VITALS: BP 101/56; PULSE 63; RESP 18; TEMP 98.8; O2SAT 96
[2025-02-07 04:32] VITALS: BP 121/67; PULSE 66; RESP 18; TEMP 98.1; O2SAT 98
[2025-02-07 04:51] LABS: GLUCOMETER DEV NAME(LOC) 5S.1D; GLUCOSE,POINT OF CARE 291 MG/DL (70-110)
[2025-02-07 06:40] LABS: PLATELET COUNT (AUTO) 335 K/uL (150-450); RED BLOOD CELL COUNT(AUTO) 3.66 MIL/uL (4.50-5.90); RED CELL DISTRIBUTION WIDTH 14.2 % (11.5-14.5); WHITE BLOOD COUNT (AUTO) 10.9 K/uL (4.5-11.0)
[2025-02-07 07:04] LABS: ASPARTATE AMINOTRANSFERASE 182.0 U/L (15-37); CALCIUM, TOTAL 8.2 mg/dL (8.8-10.5); CREATININE 1.82 mg/dL (0.60-1.30); GLOMERULAR FILTR. RATE CALC 37.0 mL/min (>60); GLUCOSE,RANDOM 235.0 mg/dL (70-110); SODIUM SERUM 133.0 mmol/L (136-145); TOTAL PROTEIN, SERUM 7.4 g/dL (6.4-8.2); UREA NITROGEN, BLOOD 25.0 mg/dL (7-18)
[2025-02-07 08:35] LABS: RBC MORPHOLOGY COMMENT ABNORMAL RBC MORPH
[2025-02-07 08:50] VITALS: BP 114/58; PULSE 63; RESP 18; TEMP 98.1; O2SAT 98
[2025-02-07] MEDS: POTASSIUM CHLORIDE 20 MEQ ER TABLET PO ONE (09:30)
[2025-02-07] MEDS ORDERED: SODIUM CHLORIDE 0.9% 500 ML IV ONE (10:37)
[2025-02-07 11:40] VITALS: BP 118/60; PULSE 76; RESP 19; TEMP 98.1; O2SAT 98
[2025-02-07 12:56] LABS: GLUCOMETER DEV NAME(LOC) 5S.1D; GLUCOSE,POINT OF CARE 222 MG/DL (70-110)
[2025-02-07 12:56] LABS: GLUCOMETER DEV NAME(LOC) 5S.1D; GLUCOSE,POINT OF CARE 193 MG/DL (70-110)
[2025-02-07 12:56] LABS: GLUCOMETER DEV NAME(LOC) 5S.1D; GLUCOSE,POINT OF CARE 235 MG/DL (70-110)
[2025-02-07] MEDS ORDERED: DEXTROSE 50%-WATER 25 GM/50 ML SYRINGE IVP PRN (13:30)
[2025-02-07] MEDS: DEXTROSE 5%-0.45% SODIUM CHL 1,000 ML IV ONE (13:42)
[2025-02-07 15:38] LABS: SODIUM TIMED,URINE 28 mmol/L (20-110)
[2025-02-07 15:39] LABS: SODIUM URINE, 24HR CALC 48 mmol/24H (40-220); TOTAL VOLUME 24HRS,URINE 1700 mL
[2025-02-07 15:48] VITALS: BP 124/64; PULSE 75; RESP 19; TEMP 98.8; O2SAT 93
[2025-02-07 19:01] LABS: GLUCOMETER DEV NAME(LOC) 5S.2D; GLUCOSE,POINT OF CARE 250 MG/DL (70-110)
[2025-02-07 19:58] VITALS: BP 126/65; PULSE 78; RESP 19; TEMP 99.5; O2SAT 99
[2025-02-07 20:51] LABS: APPEARANCE,URINE HAZY (CLEAR); GLUCOSE, URINE (UA) NEGATIVE (NEGATIVE); LEUKOCYTE ESTERASE ,URINE NEGATIVE (NEGATIVE); NITRATE,URINE NEGATIVE (NEGATIVE); OCCULT BLOOD,URINE MODERATE (NEGATIVE); SPECIFIC GRAVITIY, URINE 1.014 (1.003-1.030)
[2025-02-07 20:59] LABS: SQUAMOUS EPITHELIAL CELL,UR Rare /LPF (None Seen)
[2025-02-07 21:01] LABS: OTHER CRYSTALS,URINE NOTE /LPF (None Seen)
[2025-02-08] VITALS (7 sets, daily range): BP systolic 103–126; BP diastolic 53–74; PULSE 60–76; RESP 16–18; TEMP 97.9–99.9; O2SAT 94–99
[2025-02-08 01:16] LABS: GLUCOMETER DEV NAME(LOC) 5S.2D; GLUCOSE,POINT OF CARE 301 MG/DL (70-110)
[2025-02-08] MEDS: INSULIN LISPRO 100 UNITS/ML SQ PRN (05:34)
[2025-02-08 06:46] LABS: ASPARTATE AMINOTRANSFERASE 123.0 U/L (15-37); CALCIUM, TOTAL 8.2 mg/dL (8.8-10.5); CREATININE 1.73 mg/dL (0.60-1.30); GLOMERULAR FILTR. RATE CALC 39.0 mL/min (>60); GLUCOSE,RANDOM 343.0 mg/dL (70-110); SODIUM SERUM 131.0 mmol/L (136-145); TOTAL PROTEIN, SERUM 7.2 g/dL (6.4-8.2); UREA NITROGEN, BLOOD 24.0 mg/dL (7-18)
[2025-02-08 08:16] LABS: GLUCOMETER DEV NAME(LOC) 5S.1D; GLUCOSE,POINT OF CARE 343 MG/DL (70-110)
[2025-02-08] MEDS: VANCOMYCIN 750 MG/WATER(PEG) 150 ML IV SCH (09:56)
[2025-02-08 18:05] LABS: GLUCOMETER DEV NAME(LOC) 5S.1D; GLUCOSE,POINT OF CARE 294 MG/DL (70-110)
[2025-02-08 18:05] LABS: GLUCOMETER DEV NAME(LOC) 5S.1D; GLUCOSE,POINT OF CARE 337 MG/DL (70-110)
[2025-02-08] MEDS ORDERED: INSULIN GLARGINE,HUM.REC.ANLOG 100 UNITS/ML SQ SCH (21:00)
[2025-02-09 06:35] LABS: GLUCOMETER DEV NAME(LOC) 5S.1D; GLUCOSE,POINT OF CARE 324 MG/DL (70-110)
== END 2025-02-08 20:00 | DRG 871 ==
LOC: EMS 21:11 → EDH 23:47 → 5S 01-19 02:58 → 6S 01-22 18:00 → ICU 02-04 21:00 → 6S 02-05 16:33 → 5S 02-06 16:50
PROVIDERS: ADMIT Internal Medicine; ATTEND Internal Medicine
PROC: 0DH63UZ Insertion of Feeding Device into Stomach, Percutaneous Approach (ICD-10-PCS; principal; 2025-01-30 12:25)
DX: A41.9 Sepsis, unspecified organism (principal); E43 Unspecified severe protein-calorie malnutrition; R53.2 Functional quadriplegia; G93.41 Metabolic encephalopathy; J69.0 Pneumonitis due to inhalation of food and vomit; E87.1 Hypo-osmolality and hyponatremia; B49 Unspecified mycosis; E87.0 Hyperosmolality and hypernatremia; N39.0 Urinary tract infection, site not specified; Z43.1 Encounter for attention to gastrostomy; I69.354 Hemiplegia and hemiparesis following cerebral infarction affecting left non-dominant side; Z68.1 Body mass index [BMI] 19.9 or less, adult; T83.021A Displacement of indwelling urethral catheter, initial encounter; R74.01 Elevation of levels of liver transaminase levels; R13.10 Dysphagia, unspecified; E11.65 Type 2 diabetes mellitus with hyperglycemia; N40.0 Benign prostatic hyperplasia without lower urinary tract symptoms; N18.9 Chronic kidney disease, unspecified; I12.9 Hypertensive chronic kidney disease with stage 1 through stage 4 chronic kidney disease, or unspecified chronic kidney disease; Y73.8 Miscellaneous gastroenterology and urology devices associated with adverse incidents, not elsewhere classified; E11.22 Type 2 diabetes mellitus with diabetic chronic kidney disease; D63.1 Anemia in chronic kidney disease; E11.649 Type 2 diabetes mellitus with hypoglycemia without coma; E78.00 Pure hypercholesterolemia, unspecified; E87.6 Hypokalemia; Y83.9 Surgical procedure, unspecified as the cause of abnormal reaction of the patient, or of later complication, without mention of misadventure at the time of the procedure; F03.90 Unspecified dementia, unspecified severity, without behavioral disturbance, psychotic disturbance, mood disturbance, and anxiety; Z66 Do not resuscitate; Y92.89 Other specified places as the place of occurrence of the external cause; Z79.02 Long term (current) use of antithrombotics/antiplatelets; Z79.4 Long term (current) use of insulin; Z79.82 Long term (current) use of aspirin; Z87.440 Personal history of urinary (tract) infections; Z79.899 Other long term (current) drug therapy
CPT/HCPCS: 51702; 70450; 71045; 71260; 72193; 74018; 74160; 74176; 74230; 76705; 76770; 80048; 80053; 80076; 80202; 81001; 81002; 81050; 82962; 83605; 83615; 83735; 83930; 83935; 84100; 84132; 84145; 84300; 85025; 85610; 85730; 87040; 87081; 87086; 87106; 87186; 87205; 87481; 92526; 92610; 92611; 93005; 96365; 96375; 99285; G0378; J0360; J0690; J0696; J1450; J1644; J1815; J2060; J2185; J2543; J2704; J3480; J7030; J7040; J7050; J7060; J7120; 36415-L1; 36415-TC